=== PATIENT | male | born 1980 | race African-American/Black ===

== ENCOUNTER 2019-12-16 12:12 | Emergency (ER) | payer BC ==
[2019-12-16 15:15] LABS: ABS Eosinophils 0.1 10^3/ul (0-0.6); ABS Lymphocytes 2.3 10^3/ul (1.0-4.8); ABS Monocytes 0.5 10^3/ul (0-0.8); ABS Neutrophils 3.5 10^3/ul (1.5-7.7); Eosinophil % 1.8 %; Hematocrit 41 % (42-52); Hemoglobin 14.5 g/dL (14.0-18.0); Lymphocyte % 36.3 %; Mean Corpuscular HGB Conc 35 g/dL (31-36); Mean Corpuscular Hemoglobin 31 pg (27-31); Mean Corpuscular Volume 88 fL (80-94); Mean Platelet Volume 8.6 fL (7.4-10.4); Platelet Count 196 10^3/uL (150-450); Red Blood Count 4.72 10^6 /uL (4.18-5.48); Red Cell Distribution Width 13 % (10-15); White Blood Count 6.4 10^3/uL (3.5-10.8)
[2019-12-16 15:33] LABS: BUN/Creatinine Ratio 13.5 (8-20); Calcium 9.3 mg/dL (8.6-10.3); EGFR African American 95.2 (>60); EGFR Non-African American 78.7 (>60); Potassium 4.2 mmol/L (3.5-5.0)
[2019-12-16] MEDS ORDERED: Ibuprofen TAB* 600 MG PO ONE (15:41)
--- NOTE | 2019-12-16 16:02 | ED ---
Complex/Multi-Sys Presentation - HPI Summary HPI Summary: 39 y/o male presented to [facility] complaining of migrating pain over the past few days. Pain began in the front of his chest days ago and moved to his back the next day. Today, he woke up with pain along the left side of his back. Pt denies hematuria, dysuria, leg pain, or swelling in legs. Pain is worsened slightly by pt lifting arms. Pt denies hx of blood clots. He had a stress test 1 year ago that was normal. Pt notes fhx of [place] in mother and father. He occasionally drinks alcohol. Medications reviewed. Allergies noted. Home Medications Medication Instructions Recorded Confirmed Type Ibuprofen TAB* [Motrin TAB* 600 MG] 600 mg PO Q6H PRN #30 tab 12/16/19 Rx - History Of Current Complaint Chief Complaint: EDBackInjuryPain Time Seen by Provider: 12/16/19 14:47 Hx Obtained From: Patient Onset/Duration: Lasting Days, Still Present Timing: Constant Associated Signs And Symptoms: Positive: Other - negative - hematuria, leg swelling, leg pain. Negative: Dysuria - Allergies/Home Medications Allergies/Adverse Reactions: Allergies Allergy/AdvReac Type Severity Reaction Status Date / Time No Known Allergies Allergy Verified 12/16/19 12:18 Home Medications: Home Medications Ibuprofen TAB* [Motrin TAB* 600 MG] 600 mg PO Q6H PRN #30 tab 12/16/19 [Rx] PMH/Surg Hx/FS Hx/Imm Hx Sensory History: Denies: Hx Legally Blind, Hx Deafness Opthamlomology History: Denies: Hx Legally Blind EENT History: Denies: Hx Deafness - Immunization History Date of Influenza Vaccine: 06/2019 Infectious Disease History: No Infectious Disease History: Denies: Traveled Outside the [place] in Last 30 Days - Family History Known Family History: Positive: Hypertension - father, Diabetes - father - Social History Alcohol Use: Occasionally Substance Use Type: Reports: None Smoking Status (MU): Never Smoked Tobacco Review of Systems Positive: Chest Pain Negative: dysuria, hematuria Positive: Myalgia - back pain, Other - leg pain. Negative: Edema All Other Systems Reviewed And Are Negative: Yes Physical Exam - Summary Physical Exam Summary: Constitutional: Well-developed, Well-nourished, Alert. (-) Distressed Skin: Warm, Dry HENT: Normocephalic; Atraumatic Eyes: Conjunctiva normal Neck: Musculoskeletal ROM normal neck. (-) JVD, (-) Stridor, (-) Tracheal deviation Cardio: Rhythm regular, rate normal, Heart sounds normal; Intact distal pulses; Radial pulses are 2+ and symmetric. (-) Murmur Pulmonary/Chest wall: Effort normal. (-) Respiratory distress, (-) Wheezes, (-) Rales Abd: Soft, (-) tenderness, (-) Distension, (-) Guarding, (-) Rebound Musculoskeletal: (-) Edema, Good pulses bilaterally in radius, No calf tenderness, No venous cords, No pain with dorsiflexion of foot. Lymph: (-) Cervical adenopathy Neuro: Alert, Oriented x3 Psych: Mood and affect Normal Triage Information Reviewed: Yes Vital Signs On Initial Exam: Initial Vitals Temp Pulse Resp BP Pulse Ox 98.0 F 90 16 140/95 99 12/16/19 12:13 12/16/19 12:13 12/16/19 12:13 12/16/19 12:13 12/16/19 12:13 Vital Signs Reviewed: Yes Procedures - Sedation Patient Received Moderate/Deep Sedation with Procedure: No Diagnostics - Vital Signs Vital Signs Temp Pulse Resp BP Pulse Ox 12/16/19 14:55 98.1 F 71 18 132/76 99 12/16/19 12:13 98.0 F 90 16 140/95 99 - Laboratory Lab Results: Lab Results 12/16/19 12/16/19 12/16/19 Range/Units 15:09 15:09 15:09 WBC 6.4 (3.5-10.8) 10^3/uL RBC 4.72 (4.18-5.48) 10^6 /uL Hgb 14.5 (14.0-18.0) g/dL Hct 41 L (42-52) % MCV 88 (80-94) fL MCH 31 (27-31) pg MCHC 35 (31-36) g/dL RDW 13 (10-15) % Plt Count 196 (150-450) 10^3/uL MPV 8.6 (7.4-10.4) fL Neut % (Auto) 54.4 % Lymph % (Auto) 36.3 % [place] % (Auto) 7.1 % Eos % (Auto) 1.8 % Baso % (Auto) 0.4 % Absolute Neuts (auto) 3.5 (1.5-7.7) 10^3/ul Absolute Lymphs (auto) 2.3 (1.0-4.8) 10^3/ul Absolute Monos (auto) 0.5 (0-0.8) 10^3/ul Absolute Eos (auto) 0.1 (0-0.6) 10^3/ul Absolute Basos (auto) 0.0 (0-0.2) 10^3/ul Absolute Nucleated RBC 0.0 10^3/ul Nucleated RBC % 0.0 D-Dimer, Quantitative < 200 (Less Than 230) ng/mL Sodium 138 (135-145) mmol/L Potassium 4.2 (3.5-5.0) mmol/L Chloride 105 (101-111) mmol/L Carbon Dioxide 28 (22-32) mmol/L Anion Gap 5 (2-11) mmol/L BUN 14 (6-24) mg/dL Creatinine 1.04 (0.67-1.17) mg/dL Est GFR ( Amer) 95.2 (>60) Est GFR (Non-Af Amer) 78.7 (>60) BUN/Creatinine Ratio 13.5 (8-20) Glucose 101 H (70-100) mg/dL Calcium 9.3 (8.6-10.3) mg/dL Troponin I 0.00 (<0.03) ng/mL Result Diagrams: 12/16/19 15:09 12/16/19 15:09 Lab Statement: Any lab studies that have been ordered have been reviewed, and results considered in the medical decision making process. - Radiology cxr Radiology Interpretation Completed By: Radiologist Summary of Radiographic Findings: IMPRESSION: No radiographic evidence of acute cardiopulmonary disease. This report was reviewed by the ED physician. - EKG 1229 Cardiac Rate: NL EKG Rhythm: Sinus Rhythm Summary of EKG Findings: EKG at 1229 shows NSR at 83bpm. No ischemic changes. No STEMI. This EKG was reviewed and interpreted by the ED physician. Complex Multi-Symp Course/Dx Course Of Treatment: Patient is here with pain in his chest wall. Patient has worsening symptoms with deep breathing. Patient is overall well-appearing and in no acute distress. Patient had an EKG which showed no ischemic changes. Patient is overall low risk for PE so a d-dimer was performed which was negative. Patient had negative troponin, chest x-ray, CBC, CMP. Patient was given Motrin for symptoms. Patient was discharged with a prescription for Motrin and follow-up at [facility] - Diagnoses Provider Diagnoses: Chest pain Discharge ED - Sign-Out/Discharge Documenting (check all that apply): Patient Departure - Discharge Plan Condition: Improved Disposition: HOME Prescriptions: Ibuprofen TAB* [Motrin TAB* 600 MG] 600 mg PO Q6H PRN #30 tab PRN Reason: Pain - Mild Patient Education Materials: Chest Pain (ED), Muscle Strain (ED) Referrals: [facility] - Christopher IRIZARRY [Primary Care Provider] - Additional Instructions: Please take your medication as prescribed You can buy a heat pack for your muscle as well Please return if you have severe chest pain, trouble breathing, any other concerning symptoms Follow-up with [facility] in the next 3-5 days - Billing Disposition and Condition Condition: IMPROVED Disposition: Home - Attestation Statements Document Initiated by Flacoibe: Yes Documenting Scribe: Deon Marie Provider For Whom Idris is Documenting (Include Credential): Dalton Vivas MD Scribe Attestation: Deon Mason, scribed for Dalton Vivas MD on 12/16/19 at 1753. Scribe Documentation Reviewed: Yes Provider Attestation: The documentation as recorded by the Deon vásquez accurately reflects the service I personally performed and the decisions made by , Dalton Vivas MD Status of Scribe Document: Viewed
[2019-12-16 18:08] VITALS: BP 142/74
== END 2019-12-16 18:07 | disposition home or self-care (01) ==
LOC: ED 12:12
DX: R07.89 Other chest pain (principal); M54.9 Dorsalgia, unspecified
CPT/HCPCS: 36415; 71046; 80048; 84484; 85025; 85379; 93005; 99282; A9270-GY